=== PATIENT | male | born 1985 | race African-American/Black ===

== ENCOUNTER 2024-01-28 09:37 | Inpatient (IN) | payer OTHER ==
[2024-01-28 10:37] VITALS: BMI 27.0
[2024-01-28] MEDS ORDERED: ACETAMINOPHEN 325 MG TABLET (FP) ONE (11:49)
[2024-01-28] MEDS: ACETAMINOPHEN 325 MG TABLET (FP) PO ONE (11:53)
[2024-01-28] MEDS ORDERED: IBUPROFEN 400 MG TABLET (FP) PO PRN (12:13)
[2024-01-28] MEDS ORDERED: LOPERAMIDE HCL 2 MG CAPSULE PO PRN (12:13)
[2024-01-28] MEDS ORDERED: hydrOXYzine PAMOATE 25 MG CAPSULE (FP) PO PRN (12:13)
[2024-01-28] MEDS ORDERED: NICOTINE POLACRILEX 2 MG LOZENGE BC PRN (12:13)
[2024-01-28] MEDS ORDERED: guaiFENesin 600 MG TABLET.ER (FP) PO PRN (12:13)
[2024-01-28] MEDS ORDERED: MAGNESIUM HYDROX 2400MG/30ML ORAL SUSPENSION 30 ML CUP PO PRN (12:13)
[2024-01-28] MEDS ORDERED: BENZONATATE 200 MG CAPSULE PO PRN (12:13)
[2024-01-28] MEDS ORDERED: MAG HYDROX/AL HYDROX/SIMETH 30 ML UNIT-DOSE CUP PO PRN (12:13)
[2024-01-28] MEDS ORDERED: NALOXONE HCL 0.4 MG/ML VIAL IM PRN (12:13)
[2024-01-28] MEDS ORDERED: NICOTINE POLACRILEX 2 MG GUM BUC PRN (12:13)
[2024-01-28] MEDS ORDERED: BENZOCAINE/MENTHOL (CHLORASEPTIC ) LOZENGE MM PRN (12:13)
[2024-01-28] MEDS ORDERED: ACETAMINOPHEN 325 MG TABLET (FP) PO PRN (12:13)
[2024-01-28] MEDS ORDERED: NALOXONE HCL (KLOXXADO) 8 MG SPRAY NS PRN (12:13)
[2024-01-28] MEDS ORDERED: POLYETHYLENE GLYCOL (HEALTHYLAX) 3350 17 GM PACKET PO PRN (12:13)
[2024-01-28] MEDS: IBUPROFEN 600 MG TABLET (FP) PO PRN (14:13)
[2024-01-28] MEDS ORDERED: IBUPROFEN 600 MG TABLET (FP) PO ONE (14:15)
[2024-01-28] MEDS ORDERED: TUBERCULIN PPD 5 TU/0.1ML VIAL ID ONE (15:33)
[2024-01-28] MEDS: AMOXICILLIN 500 MG CAPSULE (FP) PO SCH (15:35)
[2024-01-28] MEDS: THIAMINE HCL 100 MG TABLET (FP) PO SCH (21:29)
[2024-01-28] MEDS: MELATONIN 5 MG TABLETS PO SCH (21:29)
[2024-01-29] MEDS: PRENATAL VITAMINS W/ FOLIC ACID TABLET (FP) PO SCH (10:23)
[2024-01-29] MEDS: amLODIPine BESYLATE 10 MG TABLET (FP) PO SCH (10:23)
[2024-01-29 12:41] LABS: HEMATOCRIT 36.9 % (35.4-49); HEMOGLOBIN 12.3 GM/dL (11.7-16.9); MCH 30.5 pg (25.7-33.7); MCHC 33.4 g/dl (32.0-35.9); MEAN CELL VOLUME 91.4 fl (80-96); MEAN PLT VOLUME 8.5 fl (7.5-11.1); PLATELET COUNT 205 10^3/uL (134-434); RBC 4.04 M/mm3 (4.00-5.60); RDW 14.8 % (11.9-15.9); WHITE BLOOD COUNT 3.1 K/mm3 (4.0-10.0)
[2024-01-29 13:00] LABS: ALBUMIN 3.7 g/dl (3.4-5.0); BLOOD UREA NITROGEN 14.1 mg/dL (7-18); CALCIUM 8.9 mg/dL (8.5-10.1)
[2024-01-29 13:03] LABS: CREATININE 0.7 mg/dL (0.55-1.3)
[2024-01-29 13:05] LABS: BILIRUBIN,TOTAL 0.8 mg/dL (0.2-1); TOT PROT 6.6 g/dl (6.4-8.2)
[2024-01-29 13:33] LABS: SYPHILIS W/ RPR CONF NON-REACTIVE (NONREACTIVE)
[2024-01-31 12:48] LABS: URINE APPEARANCE CLEAR; URINE BILIRUBIN NEGATIVE (NEGATIVE); URINE COLOR YELLOW; URINE GLUCOSE (UA) NEGATIVE (NEGATIVE); URINE KETONE NEGATIVE (NEGATIVE); URINE LEUK ESTERASE NEGATIVE (NEGATIVE); URINE NITRITE NEGATIVE (NEGATIVE); URINE PROTEIN NEGATIVE (NEGATIVE); URINE UROBILINOGEN 0.2 mg/dL (0.2-1.0)
[2024-02-01 07:20] VITALS: TEMP 97.1
[2024-02-01 09:18] VITALS: BP 120/77; PULSE 82; RESP 16
== END 2024-02-01 10:45 | disposition home or self-care (01) | DRG 772 ==
LOC: YASAS 09:37 → Y3W 14:49
PROVIDERS: ADMIT Allergy & Immunology; ATTEND Psychiatry & Neurology Pain Medicine
PROC: HZ42ZZZ Group Counseling for Substance Abuse Treatment, Cognitive-Behavioral (ICD-10-PCS; principal; 2024-01-28)
DX: F15.20 Other stimulant dependence, uncomplicated (principal); F17.210 Nicotine dependence, cigarettes, uncomplicated; I10 Essential (primary) hypertension; K04.7 Periapical abscess without sinus; Z56.0 Unemployment, unspecified; Z88.8 Allergy status to other drugs, medicaments and biological substances
CPT/HCPCS: 36415; 80053; 80305; 80307; 81003; 85027; 86780; 86803; 87635; 93005; 93010